=== PATIENT | female | born 1990 | race Caucasian/White ===

== ENCOUNTER 2019-11-16 07:30 | Inpatient (IN) | payer OTHER ==
[~2019-11-16] VITALS: Ht 165.1 cm; Wt 108.9 kg
[2019-11-16 07:40] VITALS: BP 121/62
--- NOTE | 2019-11-16 07:40 | NUR ---
TO BED # 06 AMBULATORY
--- NOTE | 2019-11-16 07:45 | NUR ---
29/F BIB SELF C/O GENERALIZED ABD PAIN, N/V /D STARTED LOGISTICS ASSOCIATE.ABDOMEN SOFT.PATIENT STATES PAIN OF 10/10 AT THIS TIME. PATIENT POSITIONED FOR COMFORT; HOB ELEVATED; BEDRAILS UP X2; BED DOWN. ER MD MADE AWARE OF PT STATUS.
[2019-11-16] MEDS ORDERED: ONDANSETRON 4 MG/2 ML VIAL IVP ONE ×2 (08:20→09:20)
[2019-11-16] MEDS ORDERED: NACL 0.9% 1,000 ML IV ONE (08:20)
[2019-11-16] MEDS ORDERED: KETOROLAC 30 MG/ML VIAL IVP ONE (08:20)
--- NOTE | 2019-11-16 08:41 | NUR ---
PT CAN'T PROVIDE URINE AT THIS TIME.
--- NOTE | 2019-11-16 09:05 | NUR ---
Pt report given to MARIZA NIX. Transfer of care at this time.
--- NOTE | 2019-11-16 09:15 | NUR ---
REPORTS RECEIVED FROM DINAH ROCHE.
[2019-11-16 09:16] LABS: BASOPHILS # (AUTO) 0.1 K/uL (0.00-0.22); BASOPHILS % (AUTO) 0.7 % (0.0-2.0); EOSINOPHILS # (AUTO) 0.1 K/uL (0-0.4); EOSINOPHILS % (AUTO) 0.6 % (0.0-4.0); HEMATOCRIT 40.6 % (36-48); HEMOGLOBIN 13.9 g/dL (12.0-16.0); LYMPHOCYTES # (AUTO) 1.6 K/uL (2.5-16.5); LYMPHOCYTES % (AUTO) 13.8 % (20.5-51.1); MEAN CORPUSCULAR HEMOGLOBIN 29 pg (27-31); MEAN CORPUSCULAR HGB CONC 34 g/dL (33-37); MEAN CORPUSCULAR VOLUME 85.1 fL (80-94); MONOCYTES # (AUTO) 0.4 K/uL (0.8-1.0); MONOCYTES % (AUTO) 3.6 % (1.7-9.3); NEUTROPHILS # (AUTO) 9.4 K/uL (1.8-7.7); NEUTROPHILS % (AUTO) 81.3 % (42.2-75.2); PLATELET COUNT (AUTO) 373 K/uL (140-450); RED BLOOD CELL COUNT(AUTO) 4.77 MIL/uL (4.20-5.40); WHITE BLOOD COUNT (AUTO) 11.5 K/uL (4.8-10.8)
[2019-11-16 09:35] LABS: ALBUMIN 4.1 g/dL (3.4-5.0); ANION GAP 16.4 (8-16); CARBON DIOXIDE 22.4 mmol/L (21-32); CREATININE 0.8 mg/dL (0.6-1.3); POTASSIUM 3.8 mmol/L (3.5-5.1); TOTAL BILIRUBIN 0.2 mg/dL (0.0-1.0)
--- NOTE | 2019-11-16 09:43 | NUR ---
PT STATES HAVING SEVERE PAIN STILL. DR. ABEBE NOTIFIED.
[2019-11-16] MEDS ORDERED: MORPHINE SULFATE 2 MG/ML SYR IVP ONE ×2 (09:45→10:35)
[2019-11-16 10:59] LABS: BILIRUBIN,URINE NEGATIVE (NEGATIVE); BLOOD, URINE 3+ (NEGATIVE); COLOR,URINE RED (YELLOW); LEUKOCYTE ESTERASE ,URINE 1+ (NEGATIVE); NITRITE, URINE NEGATIVE (NEGATIVE); UGLUCOSE NEGATIVE (NEGATIVE)
[2019-11-16 11:05] LABS: APPEARANCE,URINE BLOODY (CLEAR)
[2019-11-16 11:07] LABS: RBC,URINE 80-100 /HPF (0-5); URINE AMORPHOUS URATE 1+ /HPF (None Seen)
--- NOTE | 2019-11-16 11:52 | NUR ---
PT IS LYING IN THE BED AND STATES STILL HAVING 6/[address] ABEBE NOTIFIED.
--- NOTE | 2019-11-16 13:06 | NUR ---
TAKEN TO XRAY VIA WHEELCHAIR ASSISTED BY GEOPHYSICAL PROSPECTING PERMIT AGENT.
--- NOTE | 2019-11-16 13:15 | NUR ---
PT IS TAKEN BACK FROM [facility] VIA WHEELCHAIR ASSISTED BY Preo.
--- NOTE | 2019-11-16 13:35 | NUR ---
PT STATES HAVING 6/[address] PAIN AT THIS TIME[address] ABEBE NOTIFIED.
[2019-11-16] MEDS ORDERED: HALOPERIDOL IM 5 MG/ML VIAL IM ONE (13:40)
[2019-11-16] MEDS ORDERED: DOCUSATE SODIUM 100 MG GELCAP PO PRN (13:45)
[2019-11-16] MEDS ORDERED: ACETAMINOPHEN 325 MG TAB PO PRN (13:45)
[2019-11-16] MEDS ORDERED: HYDROcodone/APAP 5/325 MG 1 TAB TAB PO PRN (13:45)
[2019-11-16] MEDS ORDERED: MORPHINE SULFATE 2 MG/ML SYR IVP PRN ×2 (13:45→15:50)
[2019-11-16] MEDS ORDERED: ONDANSETRON 4 MG/2 ML VIAL IM/IVP PRN (13:45)
[2019-11-16] MEDS ORDERED: DEXT 5% / NACL 0.9% 500 ML IV SCH (13:45)
[2019-11-16] MEDS ORDERED: BISACODYL 10 MG SUPP RC SCH (14:15)
[2019-11-16] MEDS ORDERED: SODIUM PHOSPHATE 118 ML ENEM RC SCH (14:15)
[2019-11-16] MEDS ORDERED: METOCLOPRAMIDE 10 MG/2 ML INJ VIAL IVP PRN (14:15)
[2019-11-16 14:45] LABS: MAGNESIUM 1.7 mg/dL (1.8-2.4); THYROID STIMULATING HORMONE 1.07 uIU/mL (0.34-3.74)
[2019-11-16 14:46] LABS: PHOSPHORUS 1.2 mg/dL (2.5-4.9)
[2019-11-16 14:50] LABS: BARBITURATE, URINE NEG. ng/ml (NEG <=200); BENZODIAZEPINE, URINE NEG. ng/mL (NEG <=200); CANNABINOID, URINE POS. ng/mL (NEG <=50); COCAINE, URINE NEG. ng/mL (NEG <=300); OPIATE, URINE NEG. ng/mL (NEG <=2000); PHENCYCLIDINE SCREEN,URINE NEG. ng/mL (NEG <=25)
--- NOTE | 2019-11-16 15:02 | NUR ---
Patient will be admitted to care of N/V, abdominal pain. Admited to med-surg. Will go to room 105A. Belongings list completed. Report to DINAH Schwartz.
--- NOTE | 2019-11-16 15:07 | NUR ---
STARTED IVF PER MD ORDER AT 80 ML/HR. PT AWAKE AND RESTING ON BED. NO SIGNS OF DISTRESS NOTED. SAFETY MEASURES IN PLACE.
--- NOTE | 2019-11-16 15:23 | NUR ---
GIVEN FLEET ENEMA IN THE RECTUM. PATIENT WAS SIDE-LYING. EXPLAINED TO PATIENT TO STAY SIDE LYING. WITHIN 5 MINUTES PAID HAD AN URGE TO GO. PATIENT IS IN THE RESTROOM HAVING BM.
[2019-11-16] MEDS ORDERED: MAG SULF 2000 MG/WATER PREMIX 50 ML IV SCH (15:30)
[2019-11-16 16:00] VITALS: BP 151/100
[2019-11-16] MEDS ORDERED: POTASSIUM PHOSPHATE 15 MM in NACL 0.9% 250 ML IV SCH ×2 (16:00→22:00)
[2019-11-16] MEDS: DEXT 5% /NACL 0.9% 1,000 ML IV SCH (16:04)
[2019-11-16] MEDS ORDERED: BISACODYL 5 MG TABEC PO SCH (16:11)
--- NOTE | 2019-11-16 16:33 | NUR ---
WILL HANG POTASSIUM PHOSPHATE WHEN MAG RIDER IS DONE
--- NOTE | 2019-11-16 16:33 | NUR ---
NAOMI MG-RIDER FOR MAG LEVEL 1.7. BISACODYL PO. EXPLAINED TO PATIENT MEDS AND SIDE EFFECTS. PATIENT VERBALIZED UNDERSTANDING. GF AT BEDSIDE.
[2019-11-16 17:29] LABS: PROTHROMBIN TIME 10.3 secs (10.8-13.4)
--- NOTE | 2019-11-16 17:41 | NUR ---
PATIENT DENIES ABD PAIN AT THIS TIME. NO SIGNS OF DISTRESS NOTED. BED IN LOW POSITION. CALL LIGHT IS WITHIN REACH. [facility] CONTINUE TO MONITOR
[2019-11-16] MEDS ORDERED: BISACODYL 5 MG TABEC PO PRN (18:00)
[2019-11-16] MEDS: DOCUSATE SODIUM 100 MG GELCAP PO SCH ×2 (18:18→20:06)
--- NOTE | 2019-11-16 18:28 | NUR ---
HANG POTASSIUM PHOSPHATE AT RATE 63.75 FOR PHOSPHORUS LEVEL 1.2. EXPLAINED TO PATIENT MEDS AND SIDE EFFECTS. PATIENT VERBALIZED UNDERSTANDING. BED IN LOW POSITION. CALL LIGHT IS WITHIN REACH
--- NOTE | 2019-11-16 19:16 | NUR ---
ENDORSED PATIENT TO THE NIGHT NURSE FOR CONTINUITY OF CARE. PATIENT IS SLEEPING AT THIS TIME. NO SIGNS OF DISTRESS NOTED. BED IN LOW POSITION.
--- NOTE | 2019-11-16 19:17 | NUR ---
RECEIVED BEDSIDE REPORT FROM DAY SHIFT NURSE. PT IN BED, RESTING. NO SOB OR ANY RESPIRATORY DISTRESS NOTED. SKIN INTACT, WARM AND DRY TO TOUCH. IV SITED ON RAC, 20G, PATENT, INTACT, AND ASYMPTOMATIC. BOARD UPDATED, POC REVIEWED AND DISCUSSED WITH PT. PT VERBALIZED UNDERSTANDING. ALL SAFETY MEASUREMENT ARE MET. BED IN LOW POSITION, CALL LIGHT WITHIN REACH.
[2019-11-16] MEDS: PSYLLIUM 12.2 GM/PKT PO SCH (20:06)
--- NOTE | 2019-11-16 20:06 | NUR ---
GIVEN COLACE AND PSYLLIUM MD ORDERED. PT TOLERATED WELL.
--- NOTE | 2019-11-16 22:09 | NUR ---
PT SLEEPING IN BED COMFORTABLY. NO ACUTE DISTRESS NOTED.
--- NOTE | 2019-11-16 22:35 | NUR ---
GIVEN POTASSIUM MD ORDERED. PT TOLERATED WELL.
[2019-11-17] VITALS: BP 113/51
--- NOTE | 2019-11-17 00:21 | NUR ---
PT SLEEPING IN BED COMFORTABLY. NO ACUTE DISTRESS NOTED.
--- NOTE | 2019-11-17 02:12 | NUR ---
PT SLEEPING IN BED COMFORTABLY. NO ACUTE DISTRESS NOTED.
--- NOTE | 2019-11-17 04:07 | NUR ---
PT SLEEPING IN BED COMFORTABLY. NO ACUTE DISTRESS NOTED.
[2019-11-17] MEDS: DEXT 5% /NACL 0.9% 1,000 ML IV SCH ×2 (04:26→16:56)
--- NOTE | 2019-11-17 07:10 | NUR ---
RECEIVED BEDSIDE REPORT FROM CORPORATE EXECUTIVE NURSE. PT ASLEEP, NO S/S OF DISTRESS, NO SOB, ON ROOM AIR. SKIN INTACT. IV SITE R AC 20 G INFUSING D5 NS 80 ML/HR. PT IS AMBULATORY. CALL LIGHT WITHIN REACH. PER NIGHT NURSE, PT HAD 4 BM'S LAST SHIFT. NO EPISODES OF VOMITING. WILL CONTINUE TO MONITOR.
--- NOTE | 2019-11-17 07:26 | NUR ---
ENDORSED PT TO DAY SHIFT NURSE FOR CONTINUOUS CARE. PT IN STABLE CONDITION.
[2019-11-17 07:42] LABS: BASOPHILS # (AUTO) 0.1 K/uL (0.00-0.22); BASOPHILS % (AUTO) 0.6 % (0.0-2.0); EOSINOPHILS # (AUTO) 0.1 K/uL (0-0.4); EOSINOPHILS % (AUTO) 0.7 % (0.0-4.0); HEMOGLOBIN 13.2 g/dL (12.0-16.0); LYMPHOCYTES # (AUTO) 2.6 K/uL (2.5-16.5); LYMPHOCYTES % (AUTO) 29.4 % (20.5-51.1); MEAN CORPUSCULAR HEMOGLOBIN 30 pg (27-31); MEAN CORPUSCULAR HGB CONC 35 g/dL (33-37); MEAN CORPUSCULAR VOLUME 85.3 fL (80-94); MONOCYTES # (AUTO) 0.9 K/uL (0.8-1.0); NEUTROPHILS # (AUTO) 5.3 K/uL (1.8-7.7); NEUTROPHILS % (AUTO) 59.3 % (42.2-75.2); PLATELET COUNT (AUTO) 352 K/uL (140-450); RED BLOOD CELL COUNT(AUTO) 4.45 MIL/uL (4.20-5.40); RED CELL DISTRIBUTION WIDTH 14.4 % (11.6-13.7); WHITE BLOOD COUNT (AUTO) 8.9 K/uL (4.8-10.8)
[2019-11-17 07:54] LABS: ANION GAP 12.4 (8-16); CARBON DIOXIDE 25.8 mmol/L (21-32); CREATININE 0.6 mg/dL (0.6-1.3); POTASSIUM 3.2 mmol/L (3.5-5.1)
[2019-11-17 08:00] VITALS: BP 157/85
--- NOTE | 2019-11-17 08:50 | NUR ---
PATIENT HAS BEEN SCREENED AND CATEGORIZED LOW NUTRITION RISK. PATIENT WILL BE SEEN WITHIN 7 DAYS OF ADMISSION. 11/23/[address]
[2019-11-17] MEDS: PSYLLIUM 12.2 GM/PKT PO SCH ×2 (09:00→21:21)
[2019-11-17] MEDS: DOCUSATE SODIUM 100 MG GELCAP PO SCH ×2 (09:00→21:20)
--- NOTE | 2019-11-17 09:07 | NUR ---
ORDERED BM MEDS NOT ADMINISTERED BECAUSE PT HAS BEEN HAVING MULTIPLE BM'S THIS MORNING. PT IS DUE TO HAVE A KUB TODAY TO R/O AN OBSTRUCTION. PT WONDERING WHEN SHE WILL BE ABLE TO EAT. DR NEELY SAID AFTER KUB RESULTS COME BACK, SHE WILL PUT PT ON AN APPROPRIATE DIET. PT NOTIFIED.
[2019-11-17 09:53] LABS: MAGNESIUM 2.1 mg/dL (1.8-2.4)
[2019-11-17] MEDS ORDERED: POTASSIUM CHLORIDE 10 MEQ TABER PO SCH (11:00)
--- NOTE | 2019-11-17 11:01 | NUR ---
ORDERED K-DUR ADMINISTERED FOR LOW K OF 3.2. PT IS EATING HER LATE CLEAR LIQUID BREAKFAST AT THIS TIME.
--- NOTE | 2019-11-17 11:23 | NUR ---
Zipper Setter Note: Basic Screen: Yes High Risk DC Screen [facility]: ELISHA Christian Relationship: MOTHER Pre-Admission Living Arrangements: Lives with Other Prior ADL Independent Current Home Health Name/Tel: N/A Current DME/02 Name/Tel: N/A Current Hospice Name/Tel: N/A Current Dialysis Name/Tel: N/A Healthcare Decision Maker: Patient Advance Directive No - REFUSED Physician Orders for Life Sustaining Treatment Form No Patient/Family Have Educational Needs No Information Taught: Advance Directive Community Resources Person Taught: Patient Teaching Tools: Verbal Factors Affecting Learning: None Participation Level: Refused Evaluation: Verbalizes Understanding Needs Additional Education: No Discipline: Case Mgt/Social Svcs Tentative Discharge Plan/Destination: No Needs Identified Will require assistance post discharge: No Referred to Distribution Driver: No Tentative Discharge Plan Summary: Patient is a 29-year-old female admitted for intractable vomiting. Patient has no significant PMHX. Patient was admitted from home where she lives with her father. SW met with patient at bedside to verify demographics. Patient reported no history of mental health and no substance abuse history. SW inquired about marijuana use, and patient refused substance abuse resources. Patient's tentative discharge plan is to return home. No further needs identified. Signature: CHELI Rodarte Date: Nov 17, 2019 Time: 11:21
--- NOTE | 2019-11-17 12:53 | NUR ---
PT IS SLEEPING AT THIS TIME. NO DISTRESS
--- NOTE | 2019-11-17 13:56 | NUR ---
PT IS AWAKE IN BED, ON HER PHONE, NO S/S OF ANY DISTRESS NOTED, NO C/O N/V OR PAIN.
--- NOTE | 2019-11-17 15:02 | NUR ---
PT INFORMED ME THAT SHE TAKES LOSARTAN AT HOME FOR HIGH BP. SHE DOES NOT REMEMBER THE DOSE, AND THERE IS NO ONE AT HOME TO CHECK THE DOSE. DR NEELY MADE AWARE, SHE WILL ORDER A LOW STARTING DOSE OF LOSARTAN FOR PT.
--- NOTE | 2019-11-17 15:15 | NUR ---
SCHEDULED IV ROCEPHIN INFUSING. PT IS COMFORTABLY RESTING IN BED. NO S/S OF DISTRESS.
--- NOTE | 2019-11-17 15:35 | NUR ---
DISCHARGE PLANNING: THIS IS A 34 Y/O FEMALE PATIENT FROM HOME, WHO CAME IN DUE TO INTRACTABLE VOMITING X 12 HOURS. NO SIGNIFICANT MEDICAL HISTORY. INITIAL DIAGNOSIS OF INTRACTABLE VOMITING AND ABDOMINAL PAIN. CURRENT LABS INCLUDE WBC 8.9, H/H 13.2/38.0, NA/K 142/3.2, BUN/CREA 5/0.6. ON ROCEPHIN. NO CONSULTS AT THIS TIME. DC PLAN TO HOME ONCE STABLE.
[2019-11-17 16:00] VITALS: BP 135/73
--- NOTE | 2019-11-17 17:41 | NUR ---
PT IS VISITING WITH GIRLFRIEND AT BEDSIDE. NO C/O DISTRESS OR PAIN. NO EPISODES OF NAUSEA/VOMITING ALL SHIFT.
--- NOTE | 2019-11-17 19:30 | NUR ---
RECIEVED PT. AAOX4 , C/O HEADACHE - WILL MEDICATE. NID , RA , W/ IV SITE INTACT AND PATENT , REMINDS HER SHE IS ON FULL LIQ. DIET . PLAN OF CARE DISCUSSED AND VERBALIZE UNDERSTANDING , - CALL LIGHT WITHIN REACH . ON SAFETY PRECAUTION PROTOCOL - WILL CONT. TO MONITOR.
--- NOTE | 2019-11-17 19:30 | NUR ---
ENDORSED PT TO DIRECTOR OF ANESTHESIA SERVICES NURSE IN STABLE CONDITION.
--- NOTE | 2019-11-17 22:15 | NUR ---
PT REQUESTING TO GO HOME . INFORM
--- NOTE | 2019-11-17 22:23 | NUR ---
DISCHARGED AMA , IV CANULLA REMOVED - MIN. BLEEDING , IV NEEDLE INTACT - DISCHARGED ACCOMPANIED W/ FRIEND. AMA FORM SIGNED.
[2019-11-18 06:07] LABS: T4 (THYROXINE) 8.8 ug/dL (4.5-12.0)
== END 2019-11-17 22:20 | disposition left against medical advice (07) | DRG 389 ==
LOC: MED 07:30 → MTU 13:50
PROVIDERS: ADMIT General Practice; ATTEND General Practice
DX: K56.41 Fecal impaction (principal); N39.0 Urinary tract infection, site not specified; F12.188 Cannabis abuse with other cannabis-induced disorder; E87.6 Hypokalemia; E83.42 Hypomagnesemia; E83.39 Other disorders of phosphorus metabolism; Z68.39 Body mass index [BMI] 39.0-39.9, adult; E66.01 Morbid (severe) obesity due to excess calories; R31.9 Hematuria, unspecified; E78.5 Hyperlipidemia, unspecified; N94.89 Other specified conditions associated with female genital organs and menstrual cycle
CPT/HCPCS: 36415; 71045; 74018; 80048; 80053; 80305; 81001; 83036; 83690; 83735; 84100; 84436; 84443; 85025; 85610; 85730; 87040; 87081; 87086; 96361; 96372; 96374; 96375; 96376; 99285; J0696; J1630; J1885; J2270; J2405; J3475; J7030; J7042; J7060; Q0092